=== PATIENT | male | born 1955 | race Caucasian/White ===

== ENCOUNTER → 2017-10-21 17:51 | Outpatient (CLI) | payer OTHER, SELFPAY ==
--- NOTE | 2017-10-21 08:30 | PROSBIL_PTH ---
PATIENT: LUCY KEEN LOC: [facility] U#:[id number] AGE/SX: 70/M ROOM: RE10/21/[address]: Dr. Nathaniel Lowe MD : 1955 BED: DIS: SPEC #: [id number] RECD: 10/21/17 17:50 STATUS: MEDHAT MARCIA #: [id number] RAJWINDER: 10/21/17 08:[address]: Nathaniel Lowe DEPT: SURGICAL PATHOLOGY RECD BY: Micaela Smith Tissues: A - PROSTATE RIGHT B - PROSTATE RIGHT C - PROSTATE RIGHT D - PROSTATE LEFT E - PROSTATE LEFT F - PROSTATE LEFT Procedures: PROSTATE BX HEADER OPERATION: Prostate biopsy PRE-OP DIAGNOSIS: Elevated PSA TISSUE SUBMITTED: A - Right apex, B - Right mid, C - Right base, D - Left apex, E - Left mid, F - Left base MICROSCOPIC DIAGNOSIS A. Right prostate, apex, core biopsy: Prostatic tissue, negative for malignancy. B. Right prostate, mid, core biopsy: Prostatic tissue, negative for malignancy. Minimal acute and chronic inflammation. C. Right prostate, base, core biopsy: Prostatic tissue, negative for malignancy. D. Left prostate, apex, core biopsy: Prostatic tissue, negative for malignancy. E. Left prostate, mid, core biopsy: Prostatic tissue, negative for malignancy. F. Left prostate, base, core biopsy: Prostatic tissue, negative for malignancy. SJ:enrrique 10/25/17 MICROSCOPIC DESCRIPTION Slides are reviewed. GROSS DESCRIPTION A - Received is one container designated prostate, right apex. The specimen consists of two elongated fragments of light llanes-white soft tissue each measuring 1.5 cm in length and 0.1 cm in diameter. The specimen is totally submitted in one cassette. B - Received is one container designated prostate, right mid. The specimen consists of two elongated fragments of light llanes-white soft tissue each measuring 1 cm in length and 0.1 cm in diameter. The specimen is totally submitted in one cassette. C - Received is one container designated prostate, right base. The specimen consists of two elongated fragments of light llanes-white soft tissue measuring 1.2 and 1.5 cm in length and 0.1 cm in diameter. The specimen is totally submitted in one cassette. D - Received is one container designated prostate, left apex. The specimen consists of two elongated fragments of light llanes-white soft tissue measuring 0.2 and 0.3 cm in length and 0.1 cm in diameter. The specimen is totally submitted in one cassette. E - Received is one container designated prostate, left mid. The specimen consists of two elongated fragments of light llanes-white soft tissue each measuring 1.3 cm in length and 0.1 cm in diameter. The specimen is totally submitted in one cassette. F - Received is one container designated prostate, left base. The specimen consists of one elongated fragment of light llanes-white soft tissue measuring 1.2 cm in length and 0.1 cm in diameter. The specimen is totally submitted in one cassette. / SJ:rg 10/22/17 TC:3 CPT: 90153 x6
== END ==
PROVIDERS: Visit Provider Urology
DX: R97.20 Elevated prostate specific antigen [PSA] (principal)
CPT/HCPCS: 88305; G0416

== ENCOUNTER → 2021-05-13 06:22 | Outpatient (CLI) | payer OTHER, SELFPAY ==
--- NOTE | 2021-05-13 06:34 | MRI_ITS ---
MR Pelvis Male WO/W Contrast 05/13/2021 6:54 AM COMPARISON: None CLINICAL HISTORY: 65-year-old man with elevated PSA. Most recent PSA: Not provided TECHNIQUE: Standard prostate MRI protocol was used with and without 17 cc IV Dotarem. FINDINGS: Prostate volume: 85 cc PSA density: PSA not provided Length of membranous urethra: 25 mm Post-biopsy hemorrhage: None Multiparametric MR evaluation: Heterogeneous appearance of the central gland is consistent with benign prostatic hyperplasia. Diffuse hazy T2 hypointensity of the transitional zone. Lesion 1: There is a focal T2 hypointense round lesion in the left medial transition zone near the apex (image 21, series 5). It measures approximately 1 x 0.9 x 1 cm. T2 - 4 DWI - 4 DCE - inconclusive Overall PI-RADS v2 score = 4 Capsular margin and neurovascular bundle: Not involved Seminal vesicles: Normal Lymph nodes: No lymphadenopathy in the field of view. Bones: No suspicious lesions in the field of view. MRI/Pelvis W/WO Contrast IMPRESSION: 1 cm PIRADS 4 lesion in the left medial TZ near apex. - No evidence of macroscopic extracapsular extension. No evidence of seminal vesicle invasion. - No lymphadenopathy. No suspicious bone lesions. Diffuse hazy T2 hyperintensity of the transitional zone is concerning for prostatitis. Benign prostatic hyperplasia. Electronically Signed: Fei Prado MD at 22:20 EDT Tel , Service support ,
[2021-05-13 06:50] LABS: CREATININE FINGERSTICK 0.7 mg/dL (0.70-1.30); EGFR FINGERSTICK > 60.0000 mL/min (>60)
== END ==
PROVIDERS: PCP Preventive Medicine Occupational Medicine; Referring Provider Urology; Visit Provider Urology
DX: R97.20 Elevated prostate specific antigen [PSA] (principal)
CPT/HCPCS: 72197; A9575

== ENCOUNTER → 2021-06-10 | Outpatient (CLI) | payer OTHER, SELFPAY ==
--- NOTE | 2021-06-10 | IMM_PTH ---
PATIENT: LUCY KEEN LOC: [facility] U#:[id number] AGE/SX: 65/M ROOM: RE06/10/[address]: Dr. Nathaniel Lowe MD : 1955 BED: DIS: 06/10/2021 SPEC #: [id number] RECD: 06/11/21 12:59 STATUS: MEDHAT REQ #: [id number] RAJWINDER: 06/10/21 00:[address]: Nathaniel Lowe DEPT: IMMUNOHISTOCHEMISTRY RECD BY: Any Winkler ENTERED: 06/11/21 13:00 SP TYPE: IMMUNO OTHR DR: Dr. Zachary Islas DO Tissues: D - PROSTATE LEFT Procedures: P40 (add) 34BE12 (initial) PHYSICIAN & INSTITUTION [place] [id number] SPECIMEN INFORMATION: Tissue Source: D - Left prostate, apex, core biopsy Clinical Info: Elevated PSA Specimen Number: [id number] CPT code: 36586, 99203 METHODOLOGY: Deparaffinized sections of prefer/formalin-fixed tissue or PAP/DQ stained slides are incubated with monoclonal/polyclonal antibodies/oligonucleotide probes. Localization is made via biotin free immunoperoxidase method. Appropriate controls are performed and reacted as expected. Results on target cell population are indicated in the following table: RESULTS: ANTIBODY / CLONE RESULT Block D P40 (BC28) positive 34BE12 (34BE12) positive These tests were developed and their performance characteristics determined by [facility]. They may not have been cleared or approved by the U.S. Food and Drug Administration. The FDA has determined that such clearance or approval is not necessary. The above immunohistochemical/dualISH markers are ordered and reviewed by the Pathologist. INTERPRETATION: Miguel Left prostate, apex, core biopsy: Focal high-grade prostatic intraepithelial neoplasia (HGPIN). COLE:enrrique 06/12/2021
--- NOTE | 2021-06-10 08:00 | PROSBIL_PTH ---
PATIENT: LUCY KEEN [facility] U#:[id number] AGE/SX: 65/M ROOM: RE06/10/[address]: Dr. Nathaniel Lowe MD : 1955 BED: DIS: 06/10/2021 SPEC #: [id number] RECD: 06/10/21 12:54 STATUS: MEDHAT REIsiah #: [id number] RAJWINDER: 06/10/21 08:[address]: Nathaniel Lowe DEPT: SURGICAL PATHOLOGY RECD BY: Mayda Weiss ENTERED: 06/10/21 12:55 SP TYPE: PROST BX CRISTY DR: Dr. Zachary Islas DO Tissues: A - PROSTATE RIGHT B - PROSTATE RIGHT C - PROSTATE RIGHT D - PROSTATE LEFT E - PROSTATE LEFT F - PROSTATE LEFT Procedures: PROSTATE BX HEADER OPERATION: Prostate biopsy PRE-OP DIAGNOSIS: R97.20 TISSUE SUBMITTED: A - Right apex, B - Right mid, C - Right base, D - Left apex, E - Left mid, F - Left base MICROSCOPIC DIAGNOSIS A. Right prostate, apex, core biopsy: Prostatic tissue, negative for malignancy. B. Right prostate, mid, core biopsy: Prostatic tissue, negative for malignancy. C. Right prostate, base, core biopsy: Prostatic tissue, negative for malignancy. D. Left prostate, apex, core biopsy: Focal high-grade prostatic intraepithelial neoplasia (HGPIN). See comment. E. Left prostate, mid, core biopsy: Prostatic tissue, negative for malignancy. F. Left prostate, base, core biopsy: Prostatic tissue, negative for malignancy. SJ:enrrique 06/11/2021 COMMENT D. Immunohistochemistry ([id number]) supports the above diagnosis. Please make reference to previous specimen ([id number]) right prostate, apex, mid and base and left prostate, apex, mid and base with diagnosis of ?negative for malignancy.? MICROSCOPIC DESCRIPTION Slides are reviewed. GROSS DESCRIPTION A - Received is one container designated prostate, right apex. The specimen consists of two elongated fragments of light llanes-white soft tissue measuring 0.5 and 0.7 cm in length and 0.1 cm in diameter. The specimen is totally submitted in one cassette. B - Received is one container designated prostate, right mid. The specimen consists of two elongated fragments of light llanes-white soft tissue each measuring 1 cm in length and 0.1 cm in diameter. The specimen is totally submitted in one cassette. C - Received is one container designated prostate, right base. The specimen consists of two elongated fragments of light llanes-white soft tissue each measuring 1.5 cm in length and 0.1 cm in diameter. The specimen is totally submitted in one cassette. D - Received is one container designated prostate, left apex. The specimen consists of two elongated fragments of light llanes-white soft tissue measuring 0.3 and 0.5 cm in length and 0.1 cm in diameter. The specimen is totally submitted in one cassette. E - Received is one container designated prostate, left mid. The specimen consists of three elongated fragments of light llanes-white soft tissue each measuring 0.3 cm in length and 0.1 cm in diameter. The specimen is totally submitted in one cassette. F - Received is one container designated prostate, left base. The specimen consists of two elongated fragments of light llanes-white soft tissue measuring 1 and 1.5 cm in length and 0.1 cm in diameter. The specimen is totally submitted in one cassette. / SJ:rg 06/10/21 TC:5 CPT: 27683 x6
== END | disposition home or self-care (01) ==
LOC: LABSPEC 10:41
PROVIDERS: PCP Preventive Medicine Occupational Medicine; Referring Provider Urology; Visit Provider Urology
DX: R97.20 Elevated prostate specific antigen [PSA] (principal)
CPT/HCPCS: 88305; 88341; 88342; G0416

== ENCOUNTER → 2023-01-15 | Outpatient (CLI) | payer MEDICARE, OTHER, SELFPAY ==
--- NOTE | 2023-01-15 08:08 | MRI_ITS ---
STUDY: MR PELVIS WITH AND WITHOUT CONTRAST (PROSTATE) REASON FOR EXAM: Male, 67 years old. Elevated PSA, follow-up TECHNIQUE: Standardized multiparametric prostate MRI with T1, T2, DWI/ADC sequences were obtained in 3 orthogonal planes, and dynamic contrast enhancement sequences. 17 ml of clariscan contrast material was administered intravenously for the contrast portion of the examination. Exam is limited on postcontrast images secondary to lack of early/arterial phase images. COMPARISON: 05/13/2021 FINDINGS: The prostate volume measures 84 mm3. The contours of the prostate gland are smooth. There is mass effect on the bladder base. The transition zone is heterogenous. PI-RADS DWI score 2 - Hypointense within a BPH nodule on ADC. PI-RADS T2W score 2 - A mostly encapsulated nodule OR a homogeneous circumscribed nodule without encapsulation (atypical nodule) or a homogeneous mildly hypointense area between nodules.. Contrast enhancement no early or contemporaneous enhancement; or diffuse multifocal enhancement NOT corresponding to a focal finding on T2W and/or DWI or focal ehancement responding to a lesion demonstrating features of BPH onT2WI (including features of extruded BPH in the PZ). The peripheral zone is homogenous. PI-RADS DWI score 3 - Focal (discrete and different from the background) mildy hypointense on ADC and/or focal hyperintense on high b-value DWI; may be markedly hypointense on ADC or markedly hyperintense on high b-value DWI, but not both. PI-RADS T2W score 4 - Circumscribed, homogenous moderate hypointense focus/mass confined to prostate and < 1.5 cm in greatest dimension. Contrast enhancement (+) Focal, earlier or contemporaneous with enhancement of adjacent normal prostatic tissues, and corresponding to a suspicious finding on T2WI and/or DWI. T2 hypointense lesion (10 x 9 x 10 mm) of the medial, anterior left apical peripheral zone is stable and best seen on image 21 of series 5. Small focal restricted diffusion seen on image 139 of series 7. The seminal vesicles demonstrate normal margins and T2 signal pattern. No mass lesion or invasion depicted. The rectoprostatic angles are normal. Urinary bladder is normal without wall thickening. The vascular structures of the are normal. The visualized hollow viscus structures are normal. No bone marrow edema or mass lesion depicted. MRI/Pelvis W/WO Contrast IMPRESSION: 1. PIRADS v2.1 2019 -- 4 - High (clinically significant cancer is likely). 2. Since 05/13/2021, NO interval change. Stable exam. Electronically Signed: Danny Tabor ([place]), at 12:53 EDT ,
[2023-01-15 08:30] LABS: CREATININE FINGERSTICK 0.9 mg/dL (0.70-1.30); EGFR FINGERSTICK > 60.0000 mL/min (>60)
== END | disposition home or self-care (01) ==
PROVIDERS: PCP Preventive Medicine Occupational Medicine; Referring Provider Urology; Visit Provider Urology
DX: R97.20 Elevated prostate specific antigen [PSA] (principal)
CPT/HCPCS: 72197; A9575

== ENCOUNTER → 2023-02-01 | Outpatient (CLI) | payer MEDICARE, OTHER, SELFPAY ==
--- NOTE | 2023-02-01 15:15 | PROSBIL_PTH ---
PATIENT: LUCY KEEN LOC: [facility] U#:[id number] AGE/SX: 67/M ROOM: RE02/01/[address]: Dr. Nathaniel Lowe MD : 1955 BED: DIS: 02/01/2023 SPEC #: [id number] RECD: 02/01/23 16:03 STATUS: MEDHAT KENNEDY #: [id number] RAJWINDER: 02/01/23 15:[address]: Nathaniel Lowe DEPT: SURGICAL PATHOLOGY RECD BY: Micaela Smith ENTERED: 02/02/23 07:57 SP TYPE: PROST BX CRISTY DR: Dr. Zachary Islas DO Tissues: A - PROSTATE RIGHT B - PROSTATE RIGHT C - PROSTATE RIGHT D - PROSTATE LEFT E - PROSTATE LEFT F - PROSTATE LEFT Procedures: PROSTATE BX HEADER OPERATION: Prostate biopsy PRE-OP DIAGNOSIS: Elevated PSA TISSUE SUBMITTED: A - Right apex, B - Right mid, C - Right base, D - Left apex, E - Left mid, F - Left base MICROSCOPIC DIAGNOSIS A. Right prostate, apex, core biopsy: Prostatic tissue, negative for malignancy. Focal mild chronic inflammation. B. Right prostate, mid, core biopsy: Prostatic tissue, negative for malignancy. Focal moderate chronic inflammation and mild acute inflammation. C. Right prostate, base, core biopsy: Prostatic tissue, negative for malignancy. Focal moderate chronic inflammation. D. Left prostate, apex, core biopsy: Prostatic tissue, negative for malignancy. Focal mild chronic inflammation. E. Left prostate, mid, core biopsy: Prostatic tissue, negative for malignancy. Focal mild chronic inflammation and minimal acute inflammation. F. Left prostate, base, core biopsy: Prostatic tissue, negative for malignancy. Focal mild chronic inflammation. SJ:rg 02/03/2023 MICROSCOPIC DESCRIPTION Slides are reviewed. GROSS DESCRIPTION A - Received is one container designated prostate, right apex. The specimen consists of three elongated fragments of light llanes-white soft tissue measuring 0.5 to 1.2 cm in length and 0.1 cm in diameter. The specimen is totally submitted in one cassette. B - Received is one container designated prostate, right mid. The specimen consists of two elongated fragments of light llanes-white soft tissue each measuring 2.0 cm in length and 0.1 cm in diameter. The specimen is totally submitted in one cassette. C - Received is one container designated prostate, right base. The specimen consists of two elongated fragments of light llanes-white soft tissue each measuring 1.5 cm in length and 0.1 cm in diameter. The specimen is totally submitted in one cassette. D - Received is one container designated prostate, left apex. The specimen consists of three elongated fragments of light llanes-white soft tissue measuring 0.4 to 1.2 cm in length and 0.1 cm in diameter. The specimen is totally submitted in one cassette. E - Received is one container designated prostate, left mid. The specimen consists of two elongated fragments of light llanes-white soft tissue each measuring 1.2 cm in length and 0.1 cm in diameter. The specimen is totally submitted in one cassette. F - Received is one container designated prostate, left base. The specimen consists of two elongated fragments of light llanes-white soft tissue each measuring 1.8 cm in length and 0.1 cm in diameter. The specimen is totally submitted in one cassette. / SJ:rg 02/02/2023 TC:3 CPT: G0146
== END | disposition home or self-care (01) ==
LOC: LABSPEC 16:25
PROVIDERS: PCP Preventive Medicine Occupational Medicine; Referring Provider Urology; Visit Provider Urology
DX: R97.20 Elevated prostate specific antigen [PSA] (principal)
CPT/HCPCS: 88305; G0416

== ENCOUNTER 2023-11-15 22:39 | Emergency (ER) | payer MEDICARE, OTHER, SELFPAY ==
[2023-11-15 22:40] VITALS: BP 174/93; PULSE 58; RESP 18; TEMP 35.5; O2SAT 99
--- NOTE | 2023-11-15 23:04 | CT_ITS ---
EXAM: CT HEAD WITHOUT INTRAVENOUS CONTRAST CLINICAL INDICATION: dizziness TECHNIQUE: Multiple axial images were obtained of the head without intravenous contrast. This CT exam was performed using one or more of the following dose reduction techniques: automated exposure control, adjustment of the mA and/or kV according to patient size, and/or use of iterative reconstruction technique. COMPARISON: No relevant prior studies available. FINDINGS: BRAIN AND EXTRA-AXIAL SPACES: Unremarkable. No intra- or extra-axial hemorrhage. No evidence of acute infarct. No intracranial mass or mass effect. There is preservation of the covarrubias/white matter interface. Posterior fossa structures are unremarkable. Ventricles are appropriate for age. No hydrocephalus. Basal cisterns are patent. BONES/JOINTS: Unremarkable. No discrete lytic or blastic abnormalities. SINUSES: Unremarkable as visualized. Clear. MASTOID AIR CELLS: Unremarkable. Clear. ORBITS: Visualized globes, extraocular muscles, optic nerves and retrobulbar fat appear unremarkable. CT/Brain/Head without Contrast IMPRESSION: Negative head/brain CT without intravenous contrast. Electronically Signed: Truong Haines MD at 23:42 EDT ,
[2023-11-15 23:06] VITALS: BMI 28.5
--- NOTE | 2023-11-15 23:07 | ED.VIS.GI ---
HPI HPI - GI History of Present Illness Chief Complaint: Dizziness Detail of Chief Complaint: Nausea, vomiting and diarrhea. Informant: patient, spouse/S.O. and family Nausea/Vomiting/Emesis GI Symptom: Positive for Nausea and Vomiting Onset: Today Severity: Mild Diarrhea/Melena/Hematochezia GI Symptom: Positive for Diarrhea; Negative for Melena or Hematochezia Onset: Today Stool Quality: Positive for Loose Severity: Mild Associated Symptoms Associated Symptoms: Negative for Dysuria, Frequency, Hematuria or Urgency Narrative Narrative: 68-year-old male history of hypertension. States tonight around 8:00 he started with dizziness room spinning. Mild headache and then he started having nausea, vomiting and diarrhea. Had similar symptoms 3 weeks ago which resolved spontaneously and was not evaluated for. He has never been diagnosed with vertigo. He has never had a stroke or mini stroke. He is on no blood thinners. He denies any weakness or numbness. He denies any fever or abdominal pain. He did have a coworker go home today with similar symptoms. Family is also concerned because he may have had a small amount of blood in his emesis. No coffee-ground material. No melena. No black stools. Prior similar symptoms: Yes Recent Illness/Hospitalization: No PFSH PFSH Medical History Hypertension Home Medications atorvastatin 40 mg tablet 40 mg PO DAILY 11/15/23 [History Last Taken Unknown] lisinopril 10 mg-hydrochlorothiazide 12.5 mg tablet 1 tab PO DAILY 11/15/23 [History Last Taken Unknown] meclizine 25 mg chewable tablet (Antivert) 25 mg PO TID PRN dizziness #10 tabs 11/16/23 [Rx Last Taken Unknown] ondansetron 4 mg disintegrating tablet 4 mg PO Q6H PRN nausea and vomiting #7 tabs 11/16/23 [Rx Last Taken Unknown] Allergy/AdvReac Type Severity Reaction Status Date / Time No Known Allergies Allergy Verified 11/15/23 23:11 Social History Smoking Status: Never smoker ROS ROS ED ROS Narrative Dizziness. Room spinning. Nausea, vomiting and diarrhea. Review of Systems ROS Unobtainable: Denies due to encephalopathy Constitutional Constitutional ED: Denies chills or fever(s) ENT ENT ED: Denies ear pain or rhinorrhea Cardiovascular Cardiovascular: Denies chest pain or palpitations Respiratory/Chest Respiratory/Chest: Denies cough or dyspnea Gastrointestinal Gastrointestinal: Reports diarrhea, nausea and vomiting; Denies abdominal pain, constipation or melena Genitourinary Genitourinary ED: Denies dysuria or hematuria Musculoskeletal Musculoskeletal: Denies arthralgias, back pain, myalgias or neck pain Integumentary Denies abscess, Abrasions or rash Neurologic Neurologic: Reports headache(s) Psychiatric Psychiatric: Denies anxiety or depression Endocrine Endocrinology: Denies polydipsia, polyphagia or polyuria Hematologic/Lymphatic Hematologic/Lymphatic: Denies easy bleeding, easy bruising or lymphadenopathy Allergic/Immunologic Allergic/Immunologic ED: Denies mouth swelling, tongue swelling or urticaria EXAM Physical Exam Narrative Exam Narrative: Well-appearing 68-year-old male. Vital signs are stable afebrile. He does not look septic or toxic. He is currently in no distress. Currently he is not dizzy. HEENT exam atraumatic. Nontender. Pupils round reactive light. Normal speech. No facial droop. Neck nontender. Lungs clear to auscultation bilateral. Heart regular rhythm rate about 60 no murmur. Chest wall and ribs nontender. Abdomen soft nontender. No peritoneal signs. Moving all 4 extremities. 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 Dorsi plantarflexion intact. Neurologically is awake and alert with no focal motor deficits. NIH is 0. Fingertip to nose within normal limits. No drift on either upper or lower extremities. Ear canals and TMs are normal without cerumen impaction. Hallpike maneuver negative. Const Vital Signs: 11/15/23 22:40 Temperature 96 F L Temperature Source Temporal Pulse Rate 58 L Respiratory Rate 18 Blood Pressure 174/93 H Blood Pressure Mean 120 Pulse Ox 99 Oxygen Delivery Method Room Air Positive well nourished and well developed; Negative for obese, cachectic, contractures or unkempt General Appearance ED: well developed and NAD; Negative for unkempt, cachectic, contractures or pallor Nutritional Appearance: Negative for cachectic or obese HEENT Reports moist mucous membranes normocephalic and atraumatic; Negative for trauma or tenderness Eyes PERRL and EOMs intact bilaterally General Eye ED: Negative for pale conjunctiva or scleral icterus Neck no lymphadenopathy, supple and no JVD General: Negative for tenderness Carotids: Negative for other Lymph Lymphatic: Negative for other Resp normal respiratory effort and clear to auscultation bilaterally Effort and Inspection: Negative for respiratory distress Auscultation: Negative for rales, rhonchi or wheezes Cardio regular rate, regular rhythm, S1 normal heart sound, S2 normal heart sound and no murmurs Rate: Negative for bradycardia or tachycardic Rhythm: Negative for abnormal rhythm GI non-tender, non-distended and no masses Inspection: Negative for abdominal distention Auscultation: normoactive bowel sounds Palpation: soft; Negative for tender, guarding, pulsatile mass or rebound tenderness present Back/Spine no CVA tenderness General Back: Negative for CVA tenderness Cervical Spine: Negative for cervical spine tenderness Thoracic Spine / Upper Back: Negative for thoracic spinal tenderness Lumbar Spine / Lower Back: Negative for lumbar spinal tenderness Coccyx: Negative for other Extremity full ROM General Extremety ED: Negative for edema or tenderness General Extremity: Negative for edema Neuro CN's II-XII intact bilaterally and moves all extremities Neuro Narrative: Hallpike maneuver negative. Sensorium / Orientation: alert, oriented to person, oriented to place and oriented to time; Negative for orientation impaired, confused, lethargic or stuporous Motor Exam: strength 5/5 throughout; Negative for general weakness or strength abnormal Psych mental status grossly normal and thought process normal Appearance: Negative for unkempt Attitude: No agitated Mood & Affect: Negative for depressed, anxious or tearful Skin no wounds General Skin Exam: Negative for jaundice or pallor Lesions: no lesions Rashes: no rashes Trauma: Negative for abrasion Nails: Negative for discolored MDM MDM MDM Narrative Medical decision making narrative: 68-year-old male with dizziness and started having nausea and vomiting and diarrhea. Maybe a viral illness. Potentially could be vertigo. Question if he has small amount of blood in his emesis. Screening labs, CAT scan of the obtained. Repeat exam patient is doing well at 12:05 AM. I again put into her neurologic exam and remains normal. His NIH is 0. I did Hallpike again and did not elicit any dizziness or symptoms. He is feeling much better after the IV fluids and Zofran. His labs and CAT scan were unremarkable. I think this was a viral syndrome due to the nausea vomiting and diarrhea I did explain to his family could also be vertigo but typically do not get diarrhea with vertigo and usually you can elicit the symptoms with the Hallpike maneuver. I will send a prescription to the pharmacy for Zofran as needed for nausea and Antivert as needed for room spinning dizziness. Follow-up with his primary care physician the next several days to ensure he is doing well. The nurses will ambulate the patient prior to discharge. History & Record Review Discussion w/independent historian: Patient and Family Additional record(s) reviewed:: Prior inpatient record, Prior outpatient record, Prior ED visit and Prior labs Lab Data Attestation: I reviewed the patient's lab results. Lab results narrative: CBC shows normal white count 8.1. H&H of 14 and 42. Platelets 205. BMP shows gap 5. Normal BUN and creatinine of 61.2. Glucose 115. Labs: Laboratory Results - last 24 hr 11/15/23 23:08 WBC 8.1 RBC 4.68 Hgb 14.1 Hct 42.7 MCV 91.2 MCH 30.1 MCHC 33.0 RDW Std Deviation 43.1 RDW Coeff of Donna 12.9 Plt Count 205 MPV 9.1 Immature Gran % (Auto) 0.200 Neut % (Auto) 57.0 Lymph % (Auto) 31.0 Addison % (Auto) 9.3 Eos % (Auto) 2.0 Baso % (Auto) 0.5 Absolute Neuts (auto) 4.6 Absolute Lymphs (auto) 2.52 Nucleated RBC % 0 Sodium 140 Potassium 4.2 Chloride 106 Carbon Dioxide 29.0 Anion Gap 5 BUN 16 Creatinine 1.23 Estim Creat Clear Calc 67.87 Est GFR (MDRD) Af Amer 75 Est GFR (MDRD) Non-Af 62 BUN/Creatinine Ratio 13.0 Glucose 115 H Calcium 9.3 Radiography Diagnostic Testing: Clinical Impression(s) from Imaging Studies Brain CT 11/15/23 23:04 IMPRESSION: Negative head/brain CT without intravenous contrast. Electronically Signed: Truong Haines MD at 23:42 EDT , Discharge Plan Triage Chief Complaint: Dizziness ED Provider: Mic Giordano Dx/Rx/DC Orders Clinical Impression: Nausea vomiting and diarrhea, Viral gastroenteritis Instructions: ED Gastroenteritis, Viral (Adult) Prescriptions: New ondansetron 4 mg tablet,disintegrating 4 mg PO Q6H PRN (Reason: nausea and vomiting) Qty: 7 0RF meclizine [Antivert] 25 mg tablet,chewable 25 mg PO TID PRN (Reason: dizziness) Qty: 10 0RF No Action atorvastatin 40 mg tablet 40 mg PO DAILY lisinopril-hydrochlorothiazide 10-12.5 mg tablet 1 tab PO DAILY Primary Care Provider: Zachary Islas Referrals: Zachary Islas DO [Primary Care Provider] - 3-5 Days if not improving Activity Restrictions/Additional Instructions: Plenty of fluids and rest. Increase your diet slowly as tolerated. Off work tomorrow, November 16, 2023 Zofran as needed for nausea. Meclizine which is also Antivert as needed for room spinning dizziness. Disposition Disposition: Home, Self Care
[2023-11-15] MEDS: Ondansetron 4 MG/2 ML Vial IV (23:12)
[2023-11-15] MEDS: 0.9% Normal Saline (1000mL) 1,000 ML 1000 ML IV (23:12)
[2023-11-15 23:15] LABS: Absolute Lymphocyte Count 2.52 X10^3/uL (0.83-4.51); Absolute Neutrophil Count 4.6 X10^3/uL (2.0-7.7); Basophil# 0.04 X10^3/uL; Basophil% 0.5 % (0-1); Eosinophil# 0.16 X10^3/uL; Hematocrit 42.7 % (40-54); Hemoglobin 14.1 g/dL (13.0-16.5); Lymphocyte # 2.52 X10^3/ul (0.83-4.51); Mean Corpuscular Hgb 30.1 pg (27.0-32.0); Mean Corpuscular Volume 91.2 fL (80-94); Mean Platelet Vol. 9.1 fl (6.2-12.0); Monocyte# 0.76 X10^3/uL; Monocyte% 9.3 % (0-10); NRBC Flagged by Analyzer 0 % (0-5); Neutrophil # 4.64 X10^3/uL (2.7-7.7); Platelet Count 205 K/mm3 (150-450); RBC Distribution Width CV 12.9 % (11.6-14.6); RBC Distribution Width SD 43.1 fl (35.1-43.9); Red Blood Count 4.68 M/mm3 (4.6-6.2); White Blood Count 8.1 K/mm3 (4.4-11.0)
[2023-11-15 23:25] LABS: Anion Gap 5 (5-15); BUN 16 mg/dL (7-18); Calcium,Total 9.3 mg/dL (8.5-10.1); Chloride 106 mmol/L (98-107); Creatinine, Serum 1.23 mg/dL (0.70-1.30); EST Glomerular Filtration Rate 62 mL/min (>60); Est Glom Filt Rate - Afr Amer 75 mL/min (>60); Estimated Creatinine Clearance 67.87 ml/min; Glucose 115 mg/dL (74-106); Potassium 4.2 mmol/L (3.5-5.1); Sodium Level 140 mmol/L (136-145)
[2023-11-16 00:14] VITALS: BP 132/62; PULSE 67; RESP 118; TEMP 36.7; O2SAT 99
== END 2023-11-16 00:18 | disposition home or self-care (01) ==
PROVIDERS: Emergency Provider Emergency Medicine; PCP Preventive Medicine Occupational Medicine; Visit Provider Emergency Medicine
DX: R42 Dizziness and giddiness (principal); A08.4 Viral intestinal infection, unspecified; I10 Essential (primary) hypertension; R11.2 Nausea with vomiting, unspecified; R19.7 Diarrhea, unspecified; Z79.899 Other long term (current) drug therapy
CPT/HCPCS: 70450; 80048; 85025; 96361; 96374; 99282; J2405